=== PATIENT | male | born 1955 | race Caucasian/White ===

== ENCOUNTER 2016-05-07 14:53 | Emergency (ER) | payer OTHER ==
--- NOTE | 2016-05-07 14:52 | ED.REPORT ---
HPI-Trauma Multiple Date of Service May 07, 2016 ED Provider: Dr. Delarosa Pt is a 60 y/o relatively healthy male presenting to the ED via EMS due to fall from ladder which occurred prior to arrival. According to bystanders, he suffered an unwitnessed fall from a ladder from a height of at least 10 ft and suffered obvious head trauma and lost consciousness. EMS was called and the patient was found to be unresponsive to all stimuli. Intubation was attempted on route but unsuccessful secondary to "difficult anatomy". Subsequently a Javon airway was placed. Medications given on route include etomidate, succinyl , Fentanyl, and Versed. Her medics also noted extensive right chest wall crepitus and performed needle thoracostomy to the right chest wall prior to arrival. Only medical history obtainable is from old records and includes endoscopies for colon polyps. Further history not obtainable secondary to patient condition. Nursing Notes Stated Complaint: FALL FROM LADDER/FULL TRAUMA Nursing Notes Reviewed: Yes Allergies: Coded Allergies: No Known Drug Allergies (Verified Allergy, Unknown, 10/12/14) Miscellaneous Medications ([No Medications Taken]) General Time Seen by Provider: 14:53 Chief Complaint Unresponsive Hx Obtained From: EMS Unable to Obtain Hx: Patient condition Arrived By: Ambulance Onset Occurred: Just prior to arrival Past Medical History Past Medical History Colon polyps Past Surgical History Tonsillectomy Smoking History Current Every Day Smoker Ambulatory Status Independent Unable to Obtain History Past medical history, Past surgical history, Family history, Smoking history, Social history, Occupation Review of Systems Unable to Obtain ROS Patient condition Physical Exam Initial Vital Signs SEE RN NOTES Initial VS: Reviewed Skin: Warm, Dry Intubated and sedated Incontinent of urine Only responsive to densely painful stimuli Head/eyes: Right pupil reactive at 2 mm Left pupil reactive at 1 mm Multiple lacerations over face Neck: No crepitus Respiratory / Chest: No retractions Intubated Breath sounds equal but coarse after intubation Crepitance over right chest wall Subcutaneous air Cardiovascular: Heart rate NL, Regular rhythm, Heart sounds NL, No gallop, No murmurs, No rubs Distal extremities dusky in appearance Distal pulses thready Abdomen: Soft, No distention Back: dramatic step off lumbar spine area Neruo: intubated and sedated Only responsive to densely painful stimuli ENT: Atraumatic, Airway patent Lower Extremity / Pelvis / MS: No deformity, Pelvis stable Rectum / Perineum: Atraumatic Stool brown Intact rectal tone Interpretation & Diagnostics CT chest/abd/pelvis w/ contrast: IMPRESSION: 1. There is a thoracostomy on the right. There is small right pneumothorax. 2. Right lower lobe infiltrates, consolidation and atelectasis suspicious for pulmonary contusion. 3. Nondisplaced right fifth and sixth rib fractures. 4. No traumatic injury seen abdomen or pelvis identified. Dictated by: Tegan Yarbrough M.D. on 05/07/2016 at 15:56 Approved by: Tegan Yarbrough M.D. on 05/07/2016 at 16:07 Lab Results Interpretation Result Diagram: 05/07/16 1515 05/07/16 1448 Test 05/07/16 13:57 05/07/16 14:48 05/07/16 15:15 Prothrombin Time 10.5sec (8.1-12.5) Prothromb Time International Ratio 0.98ratio Activated Partial Thromboplast Time 23.7sec (22.8-33.0) White Blood Count 20.4th/mm3 (3.8-10.1) Red Blood Count 2.94mil/mm3 (4.40-5.80) Mean Corpuscular Volume 100.7fL (81-100) Mean Corpuscular Hemoglobin 32.0pg (27.0-35.0) Mean Corpuscular Hemoglobin Concent 31.8% (32.0-37.0) Red Cell Distribution Width 13.4% (12.3-15.4) Platelet Count 121bil/L (150-400) Neutrophils (%) (Auto) 84.5% (40-74) Lymphocytes (%) (Auto) 7.1% (14-46) Monocytes (%) (Auto) 7.9% (4-12) Eosinophils (%) (Auto) 0% (0-5) Basophils (%) (Auto) 0% (0-3) Sodium Level 137mEq/L (134-144) Potassium Level 3.2mEq/L (3.5-5.2) Chloride Level 96mEq/L (97-108) Carbon Dioxide Level 21mmol/L (18-29) Blood Urea Nitrogen 15mg/dL (8-27) Creatinine 0.77mg/dL (0.76-1.27) Estimat Glomerular Filtration Rate 110mL/min (>59) Glucose Level 164mg/dL (60-99) Calcium Level 9.1mg/dL (8.5-10.1) Total Bilirubin 0.3mg/dL (0.0-1.2) Aspartate Amino Transf (AST/SGOT) 25U/L (0-50) Alanine Aminotransferase (ALT/SGPT) 20U/L (0-44) Alkaline Phosphatase 54U/L (25-160) Total Protein 6.8g/dL (6.4-8.4) Albumin 4.1g/dL (3.4-5.0) Alcohols < 10mg/dL (0-10) Hemoglobin 15.5g/dL (13.8-17.2) Hematocrit 44.8% (41.0-50.0) Hold Purple Top Tube Received (Received) Hold Bradford Top Tube Received (Received) X-Ray Chest Interpretation Chest Xray Interpretation: IMPRESSION: Right thoracostomy tube projects into the apex. No definitive pneumothorax. Dictated by: Tegan Yarbrough M.D. on 05/07/2016 at 15:31 Transcribed by: MICHAEL on 05/07/2016 at 15:33 View: Portable, 1 view Interpretation / Wet Read by: Interpret - Radiologist CT Head Interpretation IMPRESSION: 1. Small acute subdural hematoma and mild intraparenchymal bleed in the right temporal tip. 2. There is minimally displaced fracture of the posterior wall of the right maxillary sinus. There is an air-fluid level consistent with hematoma within the right maxillary sinus. A small air-fluid level in the right sphenoid sinus consistent with hematoma. 3. Comminuted, minimally displaced fractures of the zygoma and zygomatic arch. 4. A small hypodense collection in the right temporal tip. Differential diagnoses include an arachnoid cyst versus subdural hygroma. Dictated by: Tegan Yarbrough M.D. on 05/07/2016 at 16:07 Approved by: Tegan Yarbrough M.D. on 05/07/2016 at 16:29 Study: Head CT no contrast Interpretation / Wet Read by: Interpret - ED physician CT C-Spine Interpretation IMPRESSION: 1. No fractures. 2. Degenerative disc disease. 3. Small right apical pneumothorax. There is severe emphysema. A 1.7 cm cavitary lesion is present in the right upper lobe. Please see separate CT chest report. Dictated by: Tegan Yarbrough M.D. on 05/07/2016 at 15:49 Transcribed by: MICHAEL on 05/07/2016 at 15:56 Study type: CT no contrast Interpretation / Wet Read by: Interpret - Radiologist, Discussed w radiologist Procedures Intubation Time: 14:56 Procedure Performed by: ED physician Consent / Setup / Site Prep: No consent - emergent, Time-out performed, Oxygen administered, Pulse oximeter applied, orange grower applied, Hand hygiene observed Blade / ET Tube / Route: [place] scope Procedural Sedation/Analgesia: Sedation: Etomidate Neuromuscular Agent: Succinylcholine ET Confirmation: Direct visualization, BS equal, End tidal CO2 device, CXR, Rising O2 sat Complications: None Post-Procedure: Condition improved, Tolerated procedure well, Patient stable Tube Thoracostomy Tube Thoracostomy: Performed prior to initial chest x-ray by surgeon due to very convincing clinical and physical exam, right chest Time: 15:00 Tube Thoracostomy by: Surgeon Indication: Pneumothorax Consent / Timeout / Setup: No consent - emergent Procedural Sedation/Analgesia: Sedation: Etomidate Tube Insertion: X-ray tube confirmation, Tube in good position Post-Procedure / Complications: No complications, Condition improved, Tolerated procedure well, Patient stable Re-Eval/Medical Decision Med Decision/Clinical Course Med Decision/Clinical Course: Patient preparation and assessment began prior to arrival. A full trauma activation was called and required arrival of anesthesia, trauma surgery, myself, the ER physician, and multiple ancillary staff waiting for the patient's arrival. His past medical history was reviewed prior to arrival through electronic medical records. The patient was immediately brought to a monitored room underwent primary survey, he was clinically definitively intubated using the glide scope. He also had notable right chest wall crepitus. Needle thoracostomy and tube thoracostomy were performed by the trauma surgeon within minutes of arrival. Hemodynamics were deemed stable, chest x-ray revealed stable position of the endotracheal tube and right tube thoracostomy, patient was rolled, spines were evaluated, patient was deemed stable to go to CAT scan. Airlift helicopter was contacted early on during patient arrival and was waiting for the possibility of transfer to [facility]. Patient was minimally responsive, only to painful stimuli. Strong suspicion for significant head injury and possible spinal cord trauma given the clinical history and exam. Patient underwent CT of the head, C-spine, chest, abdomen and pelvis which revealed a right temporal intracranial hemorrhage, right-sided rib fractures, right pneumothorax. Patient will be transferred via helicopter to [facility] for neuro intensive care. Re-Evaluation/Progress #1: Time of Eval: 15:10 Re-Evaluation/Progress Note: Family now in ED. Discussed case. Re-Evaluation/Progress #2: Time of Eval: 15:20 Re-Evaluation/Progress Note: Pt rechecked. Vital signs stable. Re-Evaluation/Progress #3: Time of Eval: 15:30 Re-Evaluation/Progress Note: Able to stabilize for CT scans. Re-Evaluation/Progress #4: Time of Eval: 15:58 Re-Evaluation/Progress Note: Pt rechecked. Pupils have normalized. CT scans are performed. Preparing for transfer. Re-Evaluation/Progress #5: Time of Eval: 16:15 Re-Evaluation/Progress Note: Pt left ED via airlift. Counseled Regarding: Diagnosis, Lab results, Need for transfer Discharge & Departure Impression: Primary Impression: Fall from ladder Encounter type: initial encounter Qualified Code: W11.XXXA - Fall on and from ladder, initial encounter Additional Impressions: Multiple trauma Pneumothorax, right Closed head injury Encounter type: initial encounter Qualified Code: S09.90XA - Unspecified injury of head, initial encounter Respiratory failure requiring intubation Concussion with loss of consciousness Encounter type: initial encounter Cerebral parenchymal hemorrhage Intracerebral hemorrhage etiology: traumatic Encounter type: initial encounter Laterality: right Loss of consciousness presence/duration: with LOC of unspecified duration Qualified Code: S06.349A - Traumatic hemorrhage of right cerebrum with loss of consciousness of unspecified duration, initial encounter Subdural hematoma Right maxillary fracture Encounter type: initial encounter Fracture type: closed Qualified Code: S02.401A - Maxillary fracture, unspecified, initial encounter for closed fracture Zygomatic arch fracture Encounter type: initial encounter Fracture type: closed Qualified Code: S02.402A - Zygomatic fracture, unspecified, initial encounter for closed fracture Multiple rib fractures Encounter type: initial encounter Fracture type: closed Laterality: right Qualified Code: S22.41XA - Multiple fractures of ribs, right side, initial encounter for closed fracture Disposition: Transfer, Acute Care Facility Transfer Requested at: 15:53 Receiving Hospital: [facility] Transfer Accepted: Yes Transfer Accepted at: 15:53 Transfer Reason: Higher level of care, Trauma Spoke with: Emergency physician Patient Status: Stable for transfer Patient Informed: Unable Discharge Condition All VS Reviewed: Yes Condition: Stable Referrals: Weston Skelton MD (PCP) Crit Care Except Billable Proc Time Spent: 75-104 minutes Services Performed: Patient management by me, Time spent at bedside, Reviewing test results, Reviewing imaging, Discussing patient care, Documentation in record, Time with fam/surrogate Critical Care Notes: See MDM Scribe Attestation Portions of this note were transcribed by Kolby Hermosillo. I, Dr. Delarosa personally performed the history, physical exam and medical decision-making; I reviewed and confirmed the accuracy of the information in the transcribed note. Signed by Jay Stacy, 05/07/16 - [id number] copies to: Weston Skelton MD, Timothy S DO May 07, 2016 14:52 KOLBY HERMOSILLO May 07, 2016 15:00
[~2016-05-07 14:53] MED LIST: NO MEDICATIONS TAKEN
[2016-05-07] MEDS ORDERED: fentaNYL-PF 50 mCg/mL 2 mL Inj ONE ×2 (15:01→15:13)
[2016-05-07 15:12] LABS: BASOPHILS % (AUTO) 0 % (0-3); EOSINOPHILS % (AUTO) 0 % (0-5); MONOCYTES % (AUTO) 7.9 % (4-12); Mean Corpuscular Volume 100.7 fL (81-100); NEUTROPHILS % (AUTO) 84.5 % (40-74); Platelet Count 121 bil/L (150-400)
[2016-05-07 15:27] LABS: INR 0.98 ratio
--- NOTE | 2016-05-07 15:35 | DRSVH ---
PROCEDURE: X-RAY CHEST ONE VIEW, PORTABLE ([id number]) INDICATIONS: Fall from. TECHNIQUE: One view of the chest was acquired. COMPARISON: [facility], CR, CHEST 2VW, 02/12/2015, 12:54. FINDINGS: Surgical changes and devices: There is a chest tube projecting in the right upper thorax. No pneumoth orax visualized. Lungs and pleura: No pleural effusions or pneumothorax. Lungs are clear. Mediastinum: Mediastinal contours appear normal. Heart size is normal. Bones and chest wall: No suspicious bony lesions. Overlying soft tissues appear unremarkable. Ther e is subcutaneous air. IMPRESSION: Right thoracostomy tube projects into the apex. No definitive pneumothorax. Dictated by: Tegan Yarbrough M.D. on 05/07/2016 at 15:31 Transcribed by: MICHAEL on 05/07/2016 at 15:33 Approved by: Tegan Yarbrough M.D. on 05/07/2016 at 16:43
--- NOTE | 2016-05-07 16:03 | DRSVH ---
PROCEDURE: CT CERVICAL SPINE WITHOUT CONTRAST ([id number]) INDICATIONS: Fall from roof. Unresponsive. TECHNIQUE: Noncontrast 3 mm thick sections acquired from the skull base to the T4 level. Sagittal and coronal r eformats were then constructed. For radiation dose reduction, the following was used: automated exp osure control, adjustment of mA and/or kV according to patient size. COMPARISON: [facility], CT, CT CHEST ABD PELVIS W CON, 05/07/2016, 15:10. None FINDINGS: Image quality: Excellent. Bones: No fractures or dislocations. Visualized superior ribs are intact. There is a severe degene rative disc disease at 5-6, and mild degenerative disc disease at C6-C7. Soft tissues: Prevertebral soft tissues are normal in thickness. No paravertebral hematomas. There is an endotracheal tube above bibi. Small right apical pneumothorax is present. Moderate to severe emphysema. A 1.7 cm cavitary lesion seen in the right upper lobe posteriorly. IMPRESSION: 1. No fractures and cervical spine. 2. Degenerative disc disease and facet arthropathy. 3. Small right apical pneumothorax. 4. There is severe emphysema. A 1.7 cm cavitary lesion is present in the right upper lobe. Dictated by: Tegan Yarbrough M.D. on 05/07/2016 at 15:49 Transcribed by: MICHAEL on 05/07/2016 at 15:56 Approved by: Tegan Yarbrough M.D. on 05/07/2016 at 16:39
--- NOTE | 2016-05-07 16:09 | DRSVH ---
PROCEDURE: CT CHEST, ABDOMEN AND PELVIS WITH CONTRAST ([id number]) INDICATIONS: FULL TRAUMA TECHNIQUE: After the administration of intravenous contrast, 5 mm thick sections acquired from the lung apices t o the symphysis. 5 mm thick coronal and sagittal reformats were acquired. Additional 7 mm thick cor onal maximum intensity projection (MIP) reformats acquired through the lungs. Optional 10-minute del ayed imaging may be performed from the kidneys to the bladder. For radiation dose reduction, the fol lowing was used: automated exposure control, adjustment of mA and/or kV according to patient size. COMPARISON: [facility], CR, XR CHEST 1VW (PORTABLE), 05/07/2016, 14:39. FINDINGS: Image quality: Excellent. CHEST: Lungs: There is a thoracostomy on the right projecting to the apex. There is a small right pneumotho rax. Right lower lobe infiltrates, consolidation and atelectasis may be secondary to pulmonary contus ion. Mild dependent atelectasis in the left lung base. Severe right apical emphysema. Central and per ipheral airways appear patent and normal in caliber. Mediastinum: No mediastinal hematomas. Heart size is normal. No pericardial effusion. Thoracic ao rta and pulmonary arteries demonstrate normal size and enhancement. No mediastinal or hilar adenopat hy. Esophagus is normal in caliber. Small hiatal hernia. Chest wall: There is subcutaneous emphysema along the right chest wall. Nondisplaced right fifth and sixth rib fractures are noted. No axillary or supraclavicular adenopathy. Thyroid gland contains a small hypodense nodule. ABDOMEN: Solid organs: Small indeterminate hypodensities are noted in liver and spleen. Liver and spleen are normal in size and enhancement, without lacerations. Gallbladder is unremarkable. Biliary system is non-dilated. Pancreas enhances normally, without transection. No adrenal hematomas. Both kidneys enhance normally, without hydronephrosis or lacerations. Peritoneum and bowel: No free fluid or air. Stomach is distended. Unenhanced bowel loops demonstrat e normal wall thickness and caliber. Nodes and vessels: No retroperitoneal or mesenteric adenopathy. Aorta and inferior vena cava are no rmal in size and enhancement. Miscellaneous: No ventral hernias. PELVIS: Genitourinary: Bladder wall thickness is normal. Miscellaneous: No inguinal hernias or adenopathy. Bones: Pelvic ring and hip joints appear intact. No vertebral compression fractures. IMPRESSION: 1. There is a thoracostomy on the right. There is small right pneumothorax. 2. Right lower lobe infiltrates, consolidation and atelectasis suspicious for pulmonary contusion. 3. Nondisplaced right fifth and sixth rib fractures. 4. No traumatic injury seen abdomen or pelvis identified. Dictated by: Tegan Yarbrough M.D. on 05/07/2016 at 15:56 Approved by: Tegan Yarbrough M.D. on 05/07/2016 at 16:07
--- NOTE | 2016-05-07 16:31 | DRSVH ---
PROCEDURE: CT BRAIN WITHOUT CONTRAST ([id number]) INDICATIONS: FULL TRAUMA TECHNIQUE: Noncontrast 4.5 mm thick angled axial sections acquired from the foramen magnum to the vertex, with c oronal reformats. COMPARISON: [facility], CT, CT CHEST ABD PELVIS W CON, 05/07/2016, 15:10. FINDINGS: Image quality: Motion artifacts are present degrading images. CSF spaces: There is a small acute subdural hematoma in the right temporal tip. There is a low densi ty fluid collection in the right temporal tip, which could represent a arachnoid cyst or subdural hyg juanito. Basal cisterns are patent. No extra-axial fluid collections. The ventricles are symmetric in size and shape. Brain: Possible intraparenchymal bleed or subarachnoid bleed in the right temporal tip along the tem poral cortex. No intracranial masses. There is mild cerebral volume loss for age. There are mild pe riventricular and deep white matter chronic small vessel ischemic changes. There is intracranial int ernal carotid artery atherosclerosis. Skull and face: There is minimally displaced, comminuted fracture of the zygoma and zygomatic arch. T here is a nondisplaced of the anterior aspect of the temporal bone. Sinuses: There is an air fluid level in the right maxillary sinus. There is a small air-fluid level i n the right sphenoid sinus. There is a nondisplaced fracture in the posterior wall of the maxillary s inus. Opacification of right ethmoid air cells. The mastoids are clear. IMPRESSION: 1. Small acute subdural hematoma and mild intraparenchymal bleed in the right temporal tip. 2. There is minimally displaced fracture of the posterior wall of the right maxillary sinus. There is an air-fluid level consistent with hematoma within the right maxillary sinus. A small air-fluid leve l in the right sphenoid sinus consistent with hematoma. 3. Comminuted, minimally displaced fractures of the zygoma and zygomatic arch. 4. A small hypodense collection in the right temporal tip. Differential diagnoses include an arachnoi d cyst versus subdural hygroma. Dictated by: Tegan Yarbrough M.D. on 05/07/2016 at 16:07 Approved by: Tegan Yarbrough M.D. on 05/07/2016 at 16:29
--- NOTE | 2016-05-07 18:17 | CONS ---
[address] [address] CONSULTATION REPORT PATIENT: OMAR HUBBARD : 1955 MR#: [id number] ADMIT: 05/07/2016 JOB ID: [id number] DATE OF SERVICE: 05/07/16 CHIEF COMPLAINT/IDENTIFICATION: Call for full trauma in the emergency department for this 60-year-old male who fell from a ladder. HISTORY OF PRESENT ILLNESS: He fell onto concrete, was unresponsive at the scene, was unable to be intubated, was hypotensive in the field with crepitus on the right chest. He received an intercostal catheter for empiric treatment of tension pneumothorax without a belle of air. He is brought to the emergency department. PAST MEDICAL HISTORY: Unknown. PHYSICAL EXAMINATION: In the emergency department: Please see the flow sheet for vital signs in emergency department. Initially, he was hypotensive. He was in a C-collar on full backboard restraints. There was blood around the face. The sternum was stable to compression, but there was crepitus and bony movement on the right chest. There was an intercostal catheter in the 4th space. His abdomen was flat. His pelvis was stable. Extremities had some abrasions but had peripheral pulses intact without any obvious deformities. Rectal examination was performed by Dr. Delarosa. Back examination shows a step-off around L4-5 without soft tissue swelling but definite bony step off. Hematocrit is 29. White count is 20. IMPRESSION AND PLAN: Status post fall with closed head injury, right chest trauma. Right chest tube was placed and chest x-ray demonstrates no significant residual pneumothorax with a chest tube in good place. Chest tube did not have significant belle of air nor any blood. The patient is currently handed over to the CT scanner for head, C-spine, chest and abdomen and pelvis CT. The plan will be for transfer to [facility] for treatment of his severe closed head injury pending ruling out intra-abdominal bleeding that would require a laparotomy to control the bleeding prior to transfer. [facility]
--- NOTE | 2016-05-07 19:12 | OP ---
[address] [address] OPERATIVE REPORT PATIENT: OMAR HUBBARD : 1955 MR#: [id number] ADMIT: 05/07/2016 JOB ID: [id number] DATE OF SURGERY: 05/07/2016 SURGEON: Yomi Herrera MD. PREOPERATIVE DIAGNOSIS(ES): Right-sided rib fractures with pneumothorax. POSTOPERATIVE DIAGNOSIS(ES): Right-sided rib fractures with pneumothorax. PROCEDURE: Right tube thoracostomy. INDICATIONS: A 60-year-old man who was brought in as a fall trauma to the emergency department after a fall from a ladder. Patient was hypotensive with crepitus on the right and had intercostal catheter placed for possible tension pneumothorax in the field. He is seen initially in the trauma bay, being intubated, moderately hypotensive. He does have subcutaneous crepitus on his right side as well as an intercostal catheter in roughly the 4th intercostal space. FINDINGS: A 40-Singaporean chest tube placed without complications. PROCEDURE: The patient had just been intubated. I examined him prior to prepping and draping his chest in a sterile fashion. I did place a catheter in the second intercostal space in the anterior axillary line directly over the rib for treatment of possible tension pneumothorax when his initial blood pressure came back systolic below 100. There was no belle of air. With the field sterile, I made a 1.5 cm incision over roughly the 5th intercostal space in the anterior axillary line. I dissected down bluntly with a Thao clamp and entered the chest. There was no belle of air. There was no belle of blood. I was able to place my finger in the pleural space. I could not palpate any lung, but I was clearly in the pleural space. I placed a 20-Singaporean chest tube and directed it towards the apex of the lung. This was hooked up to suction. There was good respiratory clouding. I secured the chest tube with a nylon suture followed by an occlusive dressing and taped mesentery. I secured the connection between the chest tube and the chest tube tubing. We checked and there was no air leak. Postprocedure film shows a chest tube in good position.
== END 2016-05-07 16:45 | disposition short-term general hospital (02) ==
LOC: SED 14:53
DX: S06.349A Traumatic hemorrhage of right cerebrum with loss of consciousness of unspecified duration, initial encounter (principal); S02.40CA Maxillary fracture, right side, initial encounter for closed fracture; S02.402A Zygomatic fracture, unspecified side, initial encounter for closed fracture; S27.0XXA Traumatic pneumothorax, initial encounter; S06.2X9A Diffuse traumatic brain injury with loss of consciousness of unspecified duration, initial encounter; S22.41XA Multiple fractures of ribs, right side, initial encounter for closed fracture; W11.XXXA Fall on and from ladder, initial encounter; Y93.9 Activity, unspecified; Y92.9 Unspecified place or not applicable; Y99.8 Other external cause status; F17.200 Nicotine dependence, unspecified, uncomplicated
CPT/HCPCS: 31500; 32551; 70450; 71010; 71260; 72125; 74177; 80053; 85014; 85018; 85025; 85610; 85730; 86850; 94002; 94799; 99291; 99292; G0390; G0480; J2250; Q9967